=== PATIENT | female | born 1995 | race Caucasian/White ===

== ENCOUNTER 2022-11-22 21:19 | Emergency (ER) | payer OTHER ==
[2022-11-22] MEDS ORDERED: Acetaminophen 500 MG TAB ONE (21:44)
[2022-11-22] MEDS ORDERED: Ibuprofen 200 MG TAB ONE (21:44)
== END 2022-11-22 21:58 | disposition home or self-care (01) ==
LOC: ERS 21:19
DX: S50.11XA Contusion of right forearm, initial encounter (principal); W18.30XA Fall on same level, unspecified, initial encounter; Y92.099 Unspecified place in other non-institutional residence as the place of occurrence of the external cause